=== PATIENT | female | born 1945 | race Hispanic/Latino ===

== ENCOUNTER 2018-12-09 10:05 | Outpatient (CLI) | payer MEDICARE, BC ==
--- NOTE | 2018-12-09 12:20 | CT ---
CT NECK WITH AND WITHOUT CONTRAST: (PARATHYROID PROTOCOL) DATE: 12-09-18 History: 73-year-old female with: E21.0 primary hyperparathyroidism E83.52 hypercalcemia Technique: IV contrast: 120 ml of Isovue 370 Precontrast scan, 25 second delay postcontrast scan, and 65 second delayed postcontrast scan, from cr aniocervical junction to 4.5 cm inferior to the juan f. Sagittal and coronal reconstructions. 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 Trapped fluid along the superior aspect of the left major pulmonary fissure. Sternotomy wires and mul tiple surgical clips along the anterior and anterolateral surface of mediastinum near the heart. Numerous moderate sized well corticated ossific fragments in two clusters, one inferior to the left c oricoid process and medial to the left glenohumeral joint, and the other cluster in the soft tissues close to the anterior surface of the proximal humeral metadiaphysis. Left and right lobes of the thyroid gland are very enlarged, extrinsically compressing the trachea, r esulting in narrowing of the transverse diameter of the trachea to 1 cm. The AP dimension of the trac hea is 2 cm, and the degree of tracheal stenosis is not severe. The bilaterally enlarged left and rig ht lobes of the thyroid gland have diffusely heterogeneously mixed low and intermediate density on th e noncontrast scan, and moderately heterogeneous enhancement. There are multiple coarse calcification s in the midpole of the left lobe. There is a single tiny punctate calcification in the midpole of th e right lobe. Because of the thyroidmegaly and multinodular goiter, with associated heterogeneous int rinsic iodine contents of the thyroid parenchyma on the noncontrast scan, it is difficult to determin e which of the few juxtathyroidal nodules are thyroidal in origin or extrathyroidal in origin. For example, there is an approximately 1 x 0.5 x 0.8 cm soft tissue density nodule abutting the super ior/posterior/medial aspect of the upper pole of the right lobe of the thyroid gland, the right anter ior side of the C6 vertebral body, and the posterolateral edge of the cricopharyngeus musculature (ax ial images 62 of 95, series 2; image 2 of 95, series 5; 158 or 190, series 3; 62 of 190 series 3; sag ittal images 79 of 180, series 602; 79 of 180 series 605; coronal images 68 of 163, series 601; 67 of 152, series 604). It has moderate degree of enhancement on the 25 second post contrast scan, and nati arently no intrinsic iodine on the precontrast scan. At the C4 level, there is another nodule abutting the right lateral edge of the thyroid cartilage, at the apex of the upper pole of the right lobe of the thyroid gland, that has more intense enhancement on the 25 second post contrast scan than the other nodule and measures approximately 0.9 x 0.5 x 0.6 cm. The fact that it has more intense early enhancement makes this a better candidate for parathyroi d adenoma (axial images 67 of 95, series 2; 163 of 190, series 3; 67 of 95, series 5; 67 of 190, seri es 3; sagittal images 72 of 180 series 605; 72 of 180, series 602; coronal image 60 of 153, series 60 1; 60 of 162, series 604). It appears to be contiguous with a mildly dilated vein that drains into th e right internal jugular vein, and there is a possibility that this could just be a portion of this v ein instead of a parathyroid adenoma. IMPRESSION: 1. Two possible candidates for parathyroid adenoma abutting the upper pole of the right lobe of the t hyroid gland, one of them abuts the posterolateral surface of the cricopharyngeus muscle, while the o ther is very close to the lateral aspect of the right side of thyroid cartilage, abutting the apex of the upper pole of the right thyroid lobe. 2. The nuclear medicine SPECT study strongly suggests that the latter nodule (abutting the superior e dge of the apex of the right thyroid lobe) is probably the parathyroid adenoma. 3. Moderately severe thyromegaly resulting in mild tracheal narrowing. Probably multinodular goiter. Other possibilities are Arik disease and Graves disease. Recommend clinical and serum laborator y correlation. 4. Two prominent clusters of coarse extraosseous ossifications, one at the left subacromial recess, a nd the other along the left biceps tendon sheath, representing primary synovial osteochondromatosis. POS: T[facility]
--- NOTE | 2018-12-09 14:48 | NM ---
NUCLEAR MEDICINE PARATHYROID SPECT AND SCINTIGRAPHY: DATE: 12/09/2018. HISTORY: A 73-year-old female with primary hyperparathyroidism and hypercalcemia. TECHNIQUE: 27.1 mCi of Technetium 99m-sestamibi injected IV. Immediate, 1-hour delayed, and 2-hour delayed, planar scintigraphy of head, neck, and upper chest, ob tained in anterior, and bilateral anterior oblique views. The same levels were covered by SPECT image s in sagittal, coronal, and axial planes, and noncontrast CT scan. SPECT-CT fusion performed. FINDINGS: There is strong uptake of radiopharmaceutical homogeneously throughout the very enlarged left and rig ht lobes of the thyroid gland, on the immediate and 1-hour delayed images. On the 2-hour delayed emmanuel ges, there is asymmetrically greater retention of the radiopharmaceutical throughout the left lobe ho mogeneously compared to the contralateral right lobe. With the greater washout in the right lobe on the 2-hour delayed images, a small focus of residually increased uptake is demonstrated in the tiny nodule at the upper pole of the right lobe of the thyroi d gland. This corresponds to the more superiorly located suspected lesion on the multiphase CT obtai sean earlier today, which is close to the right lateral edge of the thyroid cartilage. IMPRESSION: 1. The tiny nodule abutting the superior edge of the right lobe of the thyroid gland (and very close to the right lateral edge of the thyroid cartilage) is a good candidate for parathyroid adenoma. 2. Thyromegaly. This is probably multinodular goiter, but Arik's disease and Grave's disease s hould be considered. Recommend correlation with serum laboratory values. POS: T[facility]
== END 2018-12-09 10:06 | disposition home or self-care (01) ==
LOC: CT 10:05
PROVIDERS: ATTEND Otolaryngology Plastic Surgery within the Head & Neck
DX: E21.0 Primary hyperparathyroidism (principal); E01.0 Iodine-deficiency related diffuse (endemic) goiter; M89.8X1 Other specified disorders of bone, shoulder
CPT/HCPCS: 70492; 78072; 82565; A9500

== ENCOUNTER 2019-02-16 02:27 | Outpatient (CLI) | payer MEDICARE, BC ==
[2019-02-16 11:11] LABS: Hemoglobin 13.4 g/dL (12.0-16.0); Mean Corpuscular HGB CONC 33.8 g/dL (32.0-36.0); Mean Corpuscular Hemoglobin 30.6 pg (27.0-31.0); Mean Corpuscular Volume 90.6 fL (78.0-98.0); Mean Platelet Volume 10.5 fL (7.4-10.4); Platelet Count 123 thou/uL (130-400); Red Blood Cell (RBC) Count 4.38 mill/uL (4.20-5.40); White Blood Cell (WBC) Count 5.5 thou/uL (4.8-10.8)
[2019-02-16 11:33] LABS: Anion Gap 10 mmol/L (10-20); BUN (Urea Nitrogen) 11 mg/dL (9.8-20.1); Calc. Creatinine Clearance 0 mL/min (70-130); Calcium 9.9 mg/dL (7.8-10.44); Carbon Dioxide 31 mmol/L (23-31); Chloride 105 mmol/L (98-107); Estimated GFR-MDRD 77; Glucose 111 mg/dL (83-110); Potassium 3.3 mmol/L (3.5-5.1); Sodium 143 mmol/L (136-145)
== END 2019-02-16 02:28 | disposition home or self-care (01) ==
LOC: LABBT 02:27
PROVIDERS: ATTEND Neurological Surgery
DX: Z01.818 Encounter for other preprocedural examination (principal); M48.062 Spinal stenosis, lumbar region with neurogenic claudication
CPT/HCPCS: 80048; 85027; 93005; 93010

== ENCOUNTER 2019-02-28 06:24 | Day surgery (SDC) | payer MEDICARE, BC ==
[2019-02-16 09:33] VITALS: BMI 27.4
[2019-02-28] MEDS ORDERED: Famotidine/PF 20 mg/2ml Vial ONE (07:23)
[2019-02-28] MEDS ORDERED: Fentanyl 100 MCG/2 ML VIAL ONE ×3 (08:08→10:11)
[2019-02-28] MEDS ORDERED: Ondansetron PF 4 MG/2 ML Vial ONE (09:25)
[2019-02-28] MEDS ORDERED: Rocuronium Bromide 10 MG/ML (10ML VIAL) ONE (09:25)
[2019-02-28] MEDS ORDERED: Glycopyrrolate 0.2 MG/ML 5 ML SYRINGE ONE (09:25)
[2019-02-28] MEDS ORDERED: Lidocaine 1% PF 5 ML VIAL ONE (09:25)
[2019-02-28] MEDS ORDERED: PHENYLEPHRINE-NS 100 MCG/ML 10 ML SYRINGE ONE (09:25)
[2019-02-28] MEDS ORDERED: Ketorolac Tromethamine 30 MG/ML VIAL ONE (09:25)
[2019-02-28] MEDS ORDERED: PROPOFOL 200 MG/20 ML VIAL ONE (09:25)
[2019-02-28] MEDS ORDERED: SUGAMMADEX SODIUM 200 MG/2 ML VIAL ONE (09:26)
[2019-02-28] MEDS ORDERED: Acetaminophen/Codeine 30-300mg Tablet ONE (12:08)
--- NOTE | 2019-02-28 15:30 | OP ---
DATE OF PROCEDURE: 02/28/2019 TRIAL JUSTICE: Tito. PROCEDURE PERFORMED: L4-L5 and L5-S1 decompressive laminectomy. DESCRIPTION OF PROCEDURE: The patient was brought to the operating room and intubated. She was rolled in a prone position on gel-filled chest rolls. An incision was made exposing L4 through S1 and the level was confirmed by x-ray. We performed complete L5, inferior L4 and superior S1 laminectomies, completely decompressing the relevant interspaces. The wound was then extensively irrigated Maximum hemostasis was secured. Vancomycin powder was applied and the wound was closed in anatomic layers. Job ID: [id number]
== END 2019-02-28 13:00 | disposition home or self-care (01) ==
LOC: SDC 06:24
PROVIDERS: ATTEND Neurological Surgery
PROC: 00NY0ZZ Release Lumbar Spinal Cord, Open Approach (ICD-10-PCS; principal; 2019-02-28)
DX: M48.062 Spinal stenosis, lumbar region with neurogenic claudication (principal); I10 Essential (primary) hypertension; E78.5 Hyperlipidemia, unspecified; E11.9 Type 2 diabetes mellitus without complications; E07.9 Disorder of thyroid, unspecified; Z79.1 Long term (current) use of non-steroidal anti-inflammatories (NSAID); Z79.84 Long term (current) use of oral hypoglycemic drugs; Z79.899 Other long term (current) drug therapy; Z88.5 Allergy status to narcotic agent
CPT/HCPCS: 36416; 76000; J0131; J0690; J1885; J2001; J2405; J2704; J3010; J3370; S0028

== ENCOUNTER 2022-10-21 12:05 | Outpatient (CLI) | payer MEDICARE, BC | END 2022-10-21 12:06 | disposition home or self-care (01) | LOC: SCSRAD 12:05 | PROVIDERS: ATTEND Family Medicine Sports Medicine | DX: M54.50 Low back pain, unspecified (principal); M51.36 Other intervertebral disc degeneration, lumbar region; M41.9 Scoliosis, unspecified | CPT/HCPCS: 72100 ==

== ENCOUNTER 2022-12-10 10:13 | Outpatient (CLI) | payer MEDICARE, BC | END 2022-12-10 10:14 | disposition home or self-care (01) | LOC: TBSIIMAG 10:13 | PROVIDERS: ATTEND Neurological Surgery | DX: M48.062 Spinal stenosis, lumbar region with neurogenic claudication (principal); M47.816 Spondylosis without myelopathy or radiculopathy, lumbar region; M47.817 Spondylosis without myelopathy or radiculopathy, lumbosacral region | CPT/HCPCS: 72148 ==

== ENCOUNTER 2025-09-19 10:29 | Outpatient (CLI) | payer MEDICARE, BC | END 2025-09-19 10:30 | disposition home or self-care (01) | LOC: SCSRAD 10:29 | PROVIDERS: ATTEND Family Medicine Sports Medicine | DX: M54.50 Low back pain, unspecified (principal); M41.9 Scoliosis, unspecified; M47.816 Spondylosis without myelopathy or radiculopathy, lumbar region; M47.817 Spondylosis without myelopathy or radiculopathy, lumbosacral region; M48.061 Spinal stenosis, lumbar region without neurogenic claudication; M48.07 Spinal stenosis, lumbosacral region | CPT/HCPCS: 72110 ==